=== PATIENT | male | born 1955 | race Two or more races ===

== ENCOUNTER 2018-06-25 13:58 | Emergency (ER) | payer SELFPAY ==
[~2018-06-25] VITALS: Ht 170.2 cm; Wt 81.6 kg
[2018-06-25 14:15] VITALS: BP 186/84
== END 2018-06-25 17:32 | disposition home or self-care (01) ==
LOC: ER 14:05
DX: R50.9 Fever, unspecified (principal); E11.9 Type 2 diabetes mellitus without complications; I10 Essential (primary) hypertension; F17.210 Nicotine dependence, cigarettes, uncomplicated
CPT/HCPCS: 71046; 82962

== ENCOUNTER 2018-06-30 15:53 | Inpatient (IN) | payer OTHER ==
[~2018-06-30] VITALS: Ht 170.2 cm; Wt 75.2 kg
[2018-06-30] MEDS ORDERED: ALBUTEROL SULF 2.5 MG/0.5ML(0.5%) NEB SOLN HHN ONE (16:15)
[2018-06-30] MEDS ORDERED: IPRATROPIUM BROM 0.5 MG/2.5ML INH SOL HHN ONE (16:15)
[2018-06-30] MEDS ORDERED: methylPREDNISolone SOD SUCC 125 MG/2 ML VL IV ONE (16:15)
[2018-06-30 17:24] LABS: Basophils # (auto) 0.1 uL; Basophils % (auto) 0.3 % (0.0-2.0); Eosinophils # (auto) 0.1 uL; Eosinophils % (auto) 0.5 % (0.0-7.0); Hematocrit 41.6 % (41.0-53.0); Lymphocytes # (auto) 1.7 uL; Lymphocytes % (auto) 9.6 % (10.0-50.0); Mean Corpuscular Hemoglobin 30.7 pg (28.0-32.0); Mean Corpuscular Hgb Conc. 33.7 g/dL (32.0-36.0); Monocytes # (auto) 1.5 uL; Monocytes % (auto) 8.6 % (0.0-12.0); Neutrophils # (auto) 14.2 uL; Nucleated Red Blood Cells % 0.1 %; Platelet Count (auto) 312 10^3/uL (140-450); Red Blood Cells 4.58 10^6/uL (4.5-5.90); Red Cell Distribution Width 12.8 % (11.8-14.3); White Blood Cell 17.6 10^3/uL (4.4-10.8)
[2018-06-30 17:36] LABS: Alanine Aminotransferase 64 U/L (16-61); Albumin 2.9 g/dL (3.4-5.0); Anion Gap 11 (5-15); Aspartate Aminotransferase 48 U/L (15-37); BUN/Creatinine Ratio 12.1; Blood Urea Nitrogen 13 mg/dL (7-18); Calcium 8.9 mg/dL (8.5-10.1); Carbon Dioxide 27 mmol/L (21-32); Chloride 97 mmol/L (98-107); GFR African American 89 mL/min; GFR Non-African American 74 mL/min; Glucose 171 mg/dL (74-106); Magnesium 2.1 mg/dL (1.6-2.6); Potassium 3.2 mmol/L (3.5-5.1); Sodium 135 mmol/L (136-145)
[2018-06-30 17:41] LABS: Alkaline Phosphatase 152 U/L (45-117); Bilirubin, Total 0.8 mg/dL (0.2-1.0); Total Protein 9.1 g/dL (6.4-8.2)
[2018-06-30] MEDS ORDERED: POTASSIUM EFFERVESENT TAB 25 MEQ PO ONE (19:00)
[2018-06-30] MEDS ORDERED: HYDROcodone-ACET 5/325MG TAB PO PRN (19:00)
[2018-06-30] MEDS ORDERED: OSELTAMIVIR 75 MG CAP PO ONE (19:00)
[2018-06-30] MEDS ORDERED: NITROGLYCERIN 0.4 MG SL TAB SL PRN (19:00)
[2018-06-30] MEDS ORDERED: LACTULOSE 20Gm/30ML SOLN PO PRN (19:00)
[2018-06-30] MEDS ORDERED: DEXTROSE (50%) 50ML SYRG IV PRN (19:00)
[2018-06-30] MEDS ORDERED: TEMAZEPAM 15 MG CAP PO PRN (19:00)
[2018-06-30] MEDS ORDERED: MORPHINE SULFATE 4 MG/ML SYR/VIAL IV PRN ×2 (19:00)
[2018-06-30] MEDS ORDERED: ACETAMINOPHEN 500 MG TAB PO PRN (19:00)
[2018-06-30] MEDS ORDERED: ALBUTEROL SULF 2.5 MG/0.5ML(0.5%) NEB SOLN NEB PRN (19:00)
[2018-06-30] MEDS ORDERED: PROMETHAZINE HCL 25 MG/ML 1ML IV PRN (19:00)
[2018-06-30 19:11] VITALS: BP 137/87
[2018-06-30] MEDS: DOXYCYCLINE 100MG/250ML 250 ML IV SCH (19:33)
[2018-06-30] MEDS: SODIUM CHLORIDE 0.9% 1,000 ML IV SCH ×2 (19:33→22:06)
--- NOTE | 2018-06-30 20:00 | NUR ---
Telemetry admit from ER OBDULIA,KIM admitted to Telemetry unit. Patient oriented to Radha Flores, primary RN, unit, room, bed, and unit policies regarding patient care and visiting hours. Patient now on continuous telemetry monitoring, tele box # 17 and telemetry reading on arrival to unit is Sinus tachycardia 118. Patient placed on bedside oxygen, weighed by bedscale and encouraged to call if they need something. All questions and concerns addressed, patient verbalized understanding. Note:
[2018-06-30] MEDS ORDERED: chlordiazePOXIDE HCL 5 MG CAP PO PRN (20:15)
[2018-06-30] MEDS ORDERED: THIAMINE HCL 100 MG TAB PO ONE (20:15)
[2018-06-30 22:00] VITALS: BP 135/103
[2018-06-30] MEDS: InsuLIN REG 1unit/0.01ml Soln (100units/ml) SC SCH (22:05)
[2018-06-30] MEDS: ACCU-CHEK COMFORT CURVE STRIP VI SCH (22:05)
[2018-06-30] MEDS: methylPREDNISolone SOD SUCC 40 MG/ML VL IV SCH (23:59)
[2018-07-01] MEDS: IPRATROPIUM BROM 0.5 MG/2.5ML INH SOL NEB SCH ×4 (00:35→20:00)
[2018-07-01] MEDS: ALBUTEROL SULF 2.5 MG/0.5ML(0.5%) NEB SOLN NEB SCH ×4 (00:35→20:01)
--- NOTE | 2018-07-01 00:37 | NUR ---
Respiratory note: AT BEDSIDE FOR MED NEB TX. PT TOLERATING WELL VIA MASK. BS ARE FINE COURSE IN BILATERAL BASES AND DIMINISHED IN BILATERAL UPPER LOBES.
[2018-07-01 05:00] VITALS: BP 138/59
[2018-07-01] MEDS: methylPREDNISolone SOD SUCC 40 MG/ML VL IV SCH ×4 (06:11→23:43)
[2018-07-01] MEDS: DOXYCYCLINE 100MG/250ML 250 ML IV SCH ×2 (06:11→18:47)
[2018-07-01 06:29] LABS: Basophils # (auto) 0 uL; Basophils % (auto) 0.1 % (0.0-2.0); Eosinophils # (auto) 0 uL; Hematocrit 40.3 % (41.0-53.0); Lymphocytes # (auto) 0.7 uL; Lymphocytes % (auto) 6.1 % (10.0-50.0); Mean Corpuscular Hemoglobin 31.7 pg (28.0-32.0); Mean Corpuscular Hgb Conc. 34.9 g/dL (32.0-36.0); Monocytes # (auto) 0.2 uL; Monocytes % (auto) 2.1 % (0.0-12.0); Neutrophils # (auto) 10.7 uL; Neutrophils % (auto) 91.7 % (37.0-80.0); Platelet Count (auto) 270 10^3/uL (140-450); Red Blood Cells 4.42 10^6/uL (4.5-5.90); Red Cell Distribution Width 12.6 % (11.8-14.3); White Blood Cell 11.6 10^3/uL (4.4-10.8)
[2018-07-01] MEDS: ACCU-CHEK COMFORT CURVE STRIP VI SCH ×4 (06:51→22:03)
[2018-07-01] MEDS: InsuLIN REG 1unit/0.01ml Soln (100units/ml) SC SCH ×4 (06:52→23:43)
[2018-07-01] MEDS ORDERED: ATOR40TA52 (07:03)
[2018-07-01] MEDS ORDERED: METO25TA62 (07:03)
[2018-07-01] MEDS ORDERED: IPRAAER6 (07:03)
[2018-07-01] MEDS ORDERED: ENAL20TA70 (07:03)
[2018-07-01] MEDS ORDERED: METF-370 (07:03)
--- NOTE | 2018-07-01 07:15 | NUR ---
Opening Shift Note Assumed care of patient, awake, alert, and oriented x4. No S/S of distress/SOB or pain. IV in left hand 20 gauge asymptomatic, intact, patent, and infusing normal saline at 75 mL/hour. Bed locked and in lowest position and call light is within reach. Instructed on POC and to call for assist PRN, and patient verbalized understanding. Will continue to monitor for changes Q1hr and PRN.
[2018-07-01 08:42] VITALS: BP 134/83
[2018-07-01] MEDS ORDERED: OSELTAMIVIR 75 MG CAP PO SCH (10:00)
[2018-07-01] MEDS: THIAMINE HCL 100 MG TAB PO SCH (10:07)
[2018-07-01] MEDS: PANTOPRAZOLE 40 MG TAB PO SCH (10:07)
[2018-07-01] MEDS: ENOXAPARIN SOD 40 MG/0.4 ML SYRINGE SC SCH (10:07)
[2018-07-01 12:42] VITALS: BP 147/78
[2018-07-01 16:35] VITALS: BP 150/83
[2018-07-01 22:00] VITALS: BP 145/79
[2018-07-01] MEDS: SODIUM CHLORIDE 0.9% 1,000 ML IV SCH (22:02)
[2018-07-01] MEDS: LORazepam 0.5 MG TAB PO PRN ×2 (23:44)
[2018-07-02] MEDS: IPRATROPIUM BROM 0.5 MG/2.5ML INH SOL NEB SCH ×4 (01:14→18:53)
[2018-07-02] MEDS: ALBUTEROL SULF 2.5 MG/0.5ML(0.5%) NEB SOLN NEB SCH ×4 (01:14→18:53)
[2018-07-02 05:00] VITALS: BP 134/77
[2018-07-02] MEDS: DOXYCYCLINE 100MG/250ML 250 ML IV SCH ×2 (06:53→18:45)
[2018-07-02] MEDS: methylPREDNISolone SOD SUCC 40 MG/ML VL IV SCH ×4 (06:53→23:17)
[2018-07-02] MEDS: InsuLIN REG 1unit/0.01ml Soln (100units/ml) SC SCH ×5 (06:53→23:07)
[2018-07-02] MEDS: ACCU-CHEK COMFORT CURVE STRIP VI SCH ×5 (06:54→23:07)
--- NOTE | 2018-07-02 07:00 | NUR ---
Opening Shift Note Assumed care of patient, awake, alert, and oriented x4. No S/S of distress/SOB or pain. IV is in left hand 20 gauge asymptomatic, intact, patent, and infusing normal saline at 75mL/hour. Bed locked and in lowest position and call light is within reach. Instructed on POC and to call for assist PRN, and patient verbalized understanding. Will continue to monitor for changes Q1hr and PRN.
[2018-07-02 08:32] VITALS: BP 147/78
[2018-07-02] MEDS: ENOXAPARIN SOD 40 MG/0.4 ML SYRINGE SC SCH (10:10)
[2018-07-02] MEDS: PANTOPRAZOLE 40 MG TAB PO SCH (10:10)
[2018-07-02] MEDS: THIAMINE HCL 100 MG TAB PO SCH (10:10)
[2018-07-02] MEDS: LORazepam 0.5 MG TAB PO PRN (10:21)
[2018-07-02] MEDS: SODIUM CHLORIDE 0.9% 1,000 ML IV SCH (10:53)
[2018-07-02 12:06] VITALS: BP 145/79
[2018-07-02] MEDS ORDERED: INSULIN LANTUS (GLARGINE) 1 /0.01ml (100units/ml) SC ONE (15:30)
[2018-07-02 15:59] VITALS: BP 129/73
--- NOTE | 2018-07-02 17:53 | NUR ---
IV removal IV DC'd with sterile technique, catheter fully intact. Pressure dressing applied to site. Patient tolerated procedure well.
--- NOTE | 2018-07-02 17:57 | NUR ---
IV insertion IV access obtained, via clean sterile technique by inserting 22 gauge catheter at left forearm after 1 attempt. IV secured properly. No trauma to site. Patient tolerated well.
--- NOTE | 2018-07-02 19:35 | NUR ---
Opening Shift Note Assumed care of patient, awake and alert. No S/S of distress/SOB or pain. Instructed on POC and to call for assist PRN, patient verbalized understanding, call light within reach, will continue to monitor for changes Q1hr and PRN.
[2018-07-02 22:00] VITALS: BP 154/84
[2018-07-02] MEDS: INSULIN LANTUS (GLARGINE) 1 /0.01ml (100units/ml) SC SCH (23:06)
[2018-07-03] MEDS: IPRATROPIUM BROM 0.5 MG/2.5ML INH SOL NEB SCH ×4 (00:07→19:50)
[2018-07-03] MEDS: ALBUTEROL SULF 2.5 MG/0.5ML(0.5%) NEB SOLN NEB SCH ×4 (00:07→19:50)
[2018-07-03] MEDS: SODIUM CHLORIDE 0.9% 1,000 ML IV SCH ×2 (01:36→15:18)
[2018-07-03] MEDS: ACCU-CHEK COMFORT CURVE STRIP VI SCH ×5 (04:35→22:50)
[2018-07-03] MEDS: InsuLIN REG 1unit/0.01ml Soln (100units/ml) SC SCH ×5 (04:41→22:51)
[2018-07-03 05:01] VITALS: BP 137/78
[2018-07-03] MEDS: methylPREDNISolone SOD SUCC 40 MG/ML VL IV SCH ×3 (06:25→17:54)
[2018-07-03] MEDS: DOXYCYCLINE 100MG/250ML 250 ML IV SCH ×2 (06:25→18:20)
[2018-07-03] MEDS: INSULIN LANTUS (GLARGINE) 1 /0.01ml (100units/ml) SC SCH ×2 (07:42→22:50)
[2018-07-03 09:00] VITALS: BP 139/76
[2018-07-03] MEDS: ENOXAPARIN SOD 40 MG/0.4 ML SYRINGE SC SCH (09:18)
[2018-07-03] MEDS: PANTOPRAZOLE 40 MG TAB PO SCH (09:19)
[2018-07-03] MEDS: THIAMINE HCL 100 MG TAB PO SCH (09:19)
[2018-07-03 12:11] LABS: Hepatitis B Surface Antibody Negative
[2018-07-03 12:42] LABS: Hepatitis A Total Antibody Negative
[2018-07-03 13:00] VITALS: BP 150/79
[2018-07-03 13:34] LABS: Hepatitis C Antibody Negative (Negative)
[2018-07-03 13:35] LABS: Hepatitis B Surface Antigen Negative (Negative)
[2018-07-03 13:39] LABS: Hepatitis B Core Total AB Positive
--- NOTE | 2018-07-03 13:55 | NUR ---
DR. INTERIANO NOTIFIED LEFT A VOICE MAIL TO INFORM PT CAME BACK POSITIVE FOR HEPATITIS B CORE TOTAL, WAITING FOR CALL BACK.
[2018-07-03] MEDS ORDERED: HYDROcodone-ACET 5/325MG TAB PO PRN (16:45)
[2018-07-03] MEDS ORDERED: MORPHINE SULFATE 4 MG/ML SYR/VIAL IV PRN ×2 (16:45)
[2018-07-03 16:49] VITALS: BP 157/85
--- NOTE | 2018-07-03 17:20 | NUR ---
URINE SAMPLE SENT TO LAB FOR DRUG SCREEN AND URINE MICROSCOPIC
[2018-07-03] MEDS: NICOTINE 14 MG/24HR TOPICAL PATCH TD SCH (18:26)
[2018-07-03 18:30] LABS: Urine Bacteria NONE SEEN /hpf (None Seen); Urine Blood Negative /uL (Negative); Urine Specific Gravity 1.023 (1.001-1.035); Urine WBC <1 /hpf (0 - 3)
[2018-07-03 18:45] LABS: Amphetamine Screen, Urine NEGATIVE (NEGATIVE); Barbiturate Scree,Urine NEGATIVE (NEGATIVE); Benzodiazephine Screen, Urine NEGATIVE (NEGATIVE); Cannabinoid Screen, Urine NEGATIVE (NEGATIVE); Cocaine Screen, Urine NEGATIVE (NEGATIVE); Opiate Scree,Urine NEGATIVE (NEGATIVE); Phencyclidine Screen, Urine NEGATIVE (NEGATIVE)
--- NOTE | 2018-07-03 18:45 | NUR ---
SPOKE WITH DR. INTERIANO HE ORDERED TO CHANGE ACCU CHECK TO ACHS, AND TO OBTAIN ABG IF O2 SAT IS BELOW 90 ON ROOM AIR, AND PUT ORDER FOR [facility] CONSULT FOR HOME O2 IF PT QUALIFIES.
[2018-07-03 22:04] VITALS: BP 154/90
[2018-07-03] MEDS: LORazepam 0.5 MG TAB PO PRN (22:30)
[2018-07-04] VITALS (7 sets, daily range): BP systolic 148–167; BP diastolic 60–97
[2018-07-04] MEDS: IPRATROPIUM BROM 0.5 MG/2.5ML INH SOL NEB SCH ×3 (00:20→11:17)
[2018-07-04] MEDS: ALBUTEROL SULF 2.5 MG/0.5ML(0.5%) NEB SOLN NEB SCH ×3 (00:20→11:17)
--- NOTE | 2018-07-04 06:02 | NUR ---
Patient able to sustain O2 Sat of >90% on Room Air during the shift, not in any respiratory distress, will endorse to dayshift RN
[2018-07-04] MEDS: methylPREDNISolone SOD SUCC 40 MG/ML VL IV SCH ×4 (06:31→17:36)
[2018-07-04] MEDS: DOXYCYCLINE 100MG/250ML 250 ML IV SCH (06:31)
[2018-07-04 06:37] LABS: Basophils # (auto) 0 uL; Basophils % (auto) 0.1 % (0.0-2.0); Eosinophils # (auto) 0 uL; Hematocrit 42.1 % (41.0-53.0); Hemoglobin 14.5 g/dL (13.5-17.5); Lymphocytes # (auto) 0.7 uL; Lymphocytes % (auto) 6.9 % (10.0-50.0); Mean Corpuscular Hemoglobin 31.5 pg (28.0-32.0); Mean Corpuscular Hgb Conc. 34.5 g/dL (32.0-36.0); Mean Corpuscular Volume 91.5 fL (80.0-100.0); Monocytes # (auto) 0.6 uL; Monocytes % (auto) 5.7 % (0.0-12.0); Neutrophils % (auto) 87.3 % (37.0-80.0); Platelet Count (auto) 309 10^3/uL (140-450); Red Cell Distribution Width 12.6 % (11.8-14.3); White Blood Cell 10.3 10^3/uL (4.4-10.8)
[2018-07-04] MEDS: ACCU-CHEK COMFORT CURVE STRIP VI SCH ×3 (06:46→17:00)
[2018-07-04] MEDS: INSULIN LANTUS (GLARGINE) 1 /0.01ml (100units/ml) SC SCH (06:46)
[2018-07-04] MEDS: InsuLIN REG 1unit/0.01ml Soln (100units/ml) SC SCH ×3 (06:46→17:00)
[2018-07-04 06:47] LABS: Albumin 2.4 g/dL (3.4-5.0); Calcium 8.6 mg/dL (8.5-10.1); Potassium 3.6 mmol/L (3.5-5.1)
[2018-07-04 06:49] LABS: BUN/Creatinine Ratio 20.7
--- NOTE | 2018-07-04 07:00 | NUR ---
Opening Shift Note Assumed care of patient, awake and alert to person, place, and situation. No S/S of distress/SOB or pain. Instructed on POC and to call for assist PRN. Bed locked in the lowest position. Bed rails up x2. Call light in reach.
[2018-07-04 07:03] LABS: Bilirubin, Total 0.3 mg/dL (0.2-1.0); Total Protein 7.3 g/dL (6.4-8.2)
[2018-07-04] MEDS: THIAMINE HCL 100 MG TAB PO SCH (09:34)
[2018-07-04] MEDS: ENOXAPARIN SOD 40 MG/0.4 ML SYRINGE SC SCH (09:34)
[2018-07-04] MEDS: PANTOPRAZOLE 40 MG TAB PO SCH (09:35)
[2018-07-04] MEDS: LORazepam 0.5 MG TAB PO PRN (09:35)
[2018-07-04] MEDS: NICOTINE 14 MG/24HR TOPICAL PATCH TD SCH (09:36)
--- NOTE | 2018-07-04 10:20 | NUR ---
PT REPORTS THAT HE HAS BEEN WALKING FINE AND DOES NOT NEED P.T. INTERVENTION.
--- NOTE | 2018-07-04 14:00 | NUR ---
VINICIUS GUILLEN PAGEAnitra INTERIANO REGARDING BLOOD PRESSURE. AWAITING CALL BACK.
--- NOTE | 2018-07-04 14:23 | NUR ---
PER [facility] , [facility] WILL DELIVER NEBULIZER AND SHE IS STILL WORKING ON GETTING AGENCY. WALLY'S PH IS [phone]
--- NOTE | 2018-07-04 14:30 | NUR ---
PAGED PAGED DR. INTERIANO REGARDING BLOOD PRESSURE, LEFT MESSAGE. AWAITING CALL BACK.
--- NOTE | 2018-07-04 15:15 | NUR ---
NUTRITION ASSESSMENT NOTES Please refer to link notes of nutrition screen form filed under the intervention section of the plan of care for further details. Est. Needs: 1500 kcal to 1900 kcal (20-25 kcal/kgBW), 60 gms to 75 gms pro (0.8-1.0 gms/kgBW). Will continue to monitor pertinent labs and reassess nutrient need prn Thank you. Addendum: 07/04/18 at [address] Amended: Links added.
--- NOTE | 2018-07-04 15:26 | NUR ---
MD CALLED BACK SPOKE WITH DR. LAISHA MD AWARE OF PATIENTS BLOOD PRESSURE. NEW ORDERS RECEIVED. ORDERS READ BACK AND VERIFIED.
[2018-07-04] MEDS ORDERED: ENALAPRIL MALEATE 10 MG TAB PO ONE (15:30)
[2018-07-04] MEDS ORDERED: METOPROLOL TARTRATE 25 MG TAB PO ONE (15:30)
--- NOTE | 2018-07-04 16:14 | NUR ---
WALLY WILL CALL PRIMARY RN CONCERNING NEBULIZER MACHINE AND AT THAT TIME PRIMARY RN CAN ASK WALLY IF OKAY FOR PT TO GO HOME
--- NOTE | 2018-07-04 18:00 | NUR ---
NEBULIZER PER PATIENT, NOHEMY CONTACTED HIM AND WILL DELIVER NEBULIZER TO HIS HOME. PROVIDED PATIENT WITH [facility] FROM [facility] FOR FOLLOW UP.
--- NOTE | 2018-07-04 18:52 | NUR ---
DISCHARGE Discharge instructions given as ordered. Encourage to follow up with PMD as instructed. All questions and concerns addressed. Patient verbalized understanding. Medication reconciliation form completed and copy given to patient. IV removed with catheter intact, pressure dressing applied. Telemetry unit returned to ICU. Patient taken to vehicle via wheelchair with all personal belongings, accompanied by staff and family member. No distress noted at time of departure.
== END 2018-07-04 18:55 | disposition home health service (06) | DRG 202 ==
LOC: EDBD 15:53 → ER 15:57 → TELE 18:55 → TELE-WESTW 19:58
PROVIDERS: ADMIT Internal Medicine; ATTEND Hospitalist
DX: J45.902 Unspecified asthma with status asthmaticus (principal); E44.0 Moderate protein-calorie malnutrition; E87.6 Hypokalemia; I70.0 Atherosclerosis of aorta; I70.90 Unspecified atherosclerosis; J20.9 Acute bronchitis, unspecified; I10 Essential (primary) hypertension; E11.65 Type 2 diabetes mellitus with hyperglycemia; Z68.26 Body mass index [BMI] 26.0-26.9, adult; Z82.49 Family history of ischemic heart disease and other diseases of the circulatory system; Z83.3 Family history of diabetes mellitus; Z87.891 Personal history of nicotine dependence; Z79.4 Long term (current) use of insulin
CPT/HCPCS: 36415; 71045; 71046; 76705; 80053; 80307; 81001; 82962; 83036; 83605; 83735; 83880; 84484; 85025; 86704; 86706; 86708; 86803; 87040; 87340; 87804; 93005; 94640; 96374; G0378; J1815; J3490